=== PATIENT | male | born 1975 | race Caucasian/White ===

== ENCOUNTER 2016-08-16 19:42 | Emergency (ER) | payer MEDICAID, OTHER ==
[~2016-08-16] VITALS: Ht 167.6 cm; Wt 75.5 kg
[2016-08-16 19:45] VITALS: Ht 167.6 cm; Wt 75.5 kg
[2016-08-16] MEDS ORDERED: morphine 4 MG/ML VIAL IV STA (20:42)
--- NOTE | 2016-08-16 20:51 | ERD ---
ER Documentation Chief Complaint Date/Time DATE: 08/16/16 TIME: 20:50 Chief Complaint R SIDE HEADACHE FOR PAST 2 DAYS, PERRCHERY, [id number] NEURO, -N/V, -DIZZINESS HPI 41-year-old male with history of hypertension presents to the emergency department with complaints of a right-sided headache which began 2 days ago. Patient states he was sitting at home when the headache began and since that time it has gradually worsened. Patient states he has been treating his headache with Tylenol with only temporary relief. Patient denies any history of migraines. Patient states his pain is currently an 8 out of 10 throbbing right-sided pain worse when opening his jaw. Patient also notes one episode of blurry vision while driving today which resolved on its own. Patient states he was prescribed an antihypertensive medication by his primary care physician. He cannot recall the name of the medication but states that he is compliant and takes it every day ROS All systems reviewed and are negative except as per history of present illness. Medications Home Meds Active Scripts Ibuprofen* (Motrin*) 600 Mg Tab, 600 MG PO Q6H Y for PAIN for 7 Days, TAB Prov:MARINA HUYNH PA-C 08/16/16 Ondansetron (Ondansetron Odt) 4 Mg Tab.rapdis, 4 MG PO Q6H Y for NAUSEA AND/OR VOMITING, #10 TAB Prov:MARINA HUYNH PA-C 08/16/16 Hydrocodone/Acetaminophen ([place] 10-325 Tablet) 1 Each Tablet, 1 TAB PO Q6H Y for PAIN, #7 TAB Prov:MARINA HUYNH PA-C 08/16/16 Allergies Allergies: Coded Allergies: No Known Allergy (Unverified , 08/16/16) PMhx/Soc Hx Cardiac Disorders: Yes (htn) Hx Alcohol Use: No Hx Substance Use: No Hx Tobacco Use: No Smoking Status: Never smoker Physical Exam Vitals Vital Signs Date Time Temp Pulse Resp B/P Pulse Ox O2 Delivery O2 Flow Rate FiO2 08/16/16 22:57 74 16 128/78 08/16/16 19:45 97.8 80 18 162/80 98 Physical Exam Const: Well-developed, nontoxic-appearing, in mild distress Head: Atraumatic Eyes: Normal Conjunctiva ENT: Normal External Ears, Nose and Mouth. No tenderness to palpation of right temporal region. Patient notes tenderness when opening jaw. No popping or clicking of TM joint. Neck: Full range of motion..~ No meningismus. Resp: Clear to auscultation bilaterally Cardio: Regular rate and rhythm, no murmurs Abd: Soft, non tender, non distended. Normal bowel sounds Skin: No petechiae or rashes Back: No midline or flank tenderness Ext: No cyanosis, or edema Neur: Awake and alert Psych: Normal Mood and Affect Result Diagram: 08/16/16205508/16/162055 Results 24 hrs Laboratory Tests Test 08/16/16 20:56 08/16/16 21:05 Alanine Aminotransferase (ALT/SGPT) 48IU/L Albumin 4.0g/dl Albumin/Globulin Ratio 1.42 Alkaline Phosphatase 108IU/L Anion Gap 17 Aspartate Amino Transf (AST/SGOT) 31IU/L Basophils # 0.010^3/ul Basophils % 0.2% Blood Urea Nitrogen 21mg/dl Calcium Level 8.9mg/dl Carbon Dioxide Level 23mmol/L Chloride Level 106mmol/L Creatinine 0.75mg/dl Direct Bilirubin 0.00mg/dl Eosinophils # 0.210^3/ul Eosinophils % 2.3% Erythrocyte Sedimentation Rate 3mm/Hr Globulin 2.80g/dl Glucose Level 102mg/dl Hematocrit 42.2% Hemoglobin 14.7g/dl Indirect Bilirubin 0.1mg/dl Lymphocytes # 2.210^3/ul Lymphocytes % 29.4% Mean Corpuscular Hemoglobin 31.0pg Mean Corpuscular Hemoglobin Concent 34.8g/dl Mean Corpuscular Volume 89.0fl Mean Platelet Volume 8.6fl Monocytes # 0.610^3/ul Monocytes % 8.2% Neutrophils # 4.510^3/ul Neutrophils % 59.9% Nucleated Red Blood Cells # 0.010^3/ul Nucleated Red Blood Cells % 0.0/100WBC Platelet Count 90043^3/UL Potassium Level 3.4mmol/L Red Blood Count 4.7410^6/ul Red Cell Distribution Width 12.9% Sodium Level 143mmol/L Total Bilirubin 0.1mg/dl Total Protein 6.8g/dl White Blood Count 7.510^3/ul Urine Bilirubin NEGATIVE Urine Clarity CLEAR Urine Color LT. YELLOW Urine Glucose NEGATIVE% Urine Hemoglobin NEGATIVE Urine Ketones NEGATIVE Urine Leukocyte Esterase NEGATIVE Urine Nitrite NEGATIVE Urine Specific [place] 1.015 Urine Total Protein NEGATIVE Urine Urobilinogen 0.2 E.U./dL Urine pH 6.0 Current Medications Medications (Trade) Dose Ordered Sig/Jairo Route PRN Reason Start Time Stop Time Status Last Admin Dose Admin Morphine Sulfate (morphine) 4 mg ONCE STAT IV 08/16/16 20:42 08/16/16 20:55 DC Metoclopramide HCl (Reglan) 10 mg ONCE ONCE IV 08/16/16 21:00 08/16/16 21:01 DC Acetaminophen 650 mg 650 mg ONCE ONCE PO 08/16/16 21:00 08/16/16 21:01 DC 08/16/16 20:52 Sodium Chloride (NS) 1,000 ml @ 1,000 mls/hr Q1H ONCE IV 08/16/16 21:00 08/16/16 21:59 DC 08/16/16 20:52 Ketorolac Tromethamine 30 mg 30 mg ONCE STAT IV 08/16/16 22:28 08/16/16 22:29 DC 08/16/16 22:35 Sodium Chloride (NS) 500 ml @ 500 mls/hr Q1H ONCE IV 08/16/16 22:30 08/16/16 23:29 DC 08/16/16 22:35 Labetalol HCl (Labetalol) 20 mg ONCE ONCE IV 08/16/16 23:00 08/16/16 23:01 DC Procedures/MDM PROCEDURE: CT BRAIN WITHOUT CONTRAST CLINICAL INDICATION: 41-year-old with headaches. TECHNIQUE: The study was performed utilizing a GE [employer] VCT 64-slice CT scanner. Direct axial sections were obtained from the foramen magnum to the vertex without the use of intravenous contrast material. Sagittal and coronal reformations were obtained. Automated exposure control and iterative reconstruction techniques were utilized for this examination. The images were viewed on a PACS workstation. CTD/vol = 44.6 mGy; Total Exam DLP = 720.2 mGy- cm. COMPARISON: None. FINDINGS: The ventricles have a normal size, shape and position. There is no evidence for mass effect or midline shift. There is a left frontal cortical calcific density measuring approximately 8 x 5 x 7 mm on axial image 2-21 most likely from prior cysticercosis infection. There is no evidence for acute intra or extra-axial blood. The bony calvarium is intact. There is a defect within the left lamina papyracea consistent with a prior medial blowout fracture. There is minimal mucosal thickening within the partially visualized ethmoid air cells. No air-fluid levels are noted. The mastoid air cells are without significant soft tissue. IMPRESSION: 1. Left frontal calcific density presumably from prior cysticercosis infection. 2. Defect left lamina papyracea consistent with a prior medial blowout fracture. 3. Minimal mucosal thickening partially visualized ethmoid air cells. .Vicente Suazo MD, MD Date Time Electronically viewed and signed by .Vicente Suazo MD, on 08/16/2016 23:29 .M/ CC: MARINA HUYNH PA-C This is a 41-year-old male who presents with right-sided headache pain for the past 3 days. Vital signs were reviewed. Patient is afebrile. Patient is not hypoxic. Patient normotensive at 128/78 upon arrival. Patient received IV fluids, Tylenol, Toradol, and Reglan. Patient reports alleviation of symptoms posttreatment. (Exam) ENT exam was normal.. CBC showed no evidence of systemic infection or severe anemia. CMP showed no evidence of electrolyte abnormalities, severe acidosis, alkalosis , renal failure, or liver disease. ESR recorded at 3. At this time I have low suspicion for giant cell arteritis. UA showed no evidence of acute infection or hematuria. The patient's headache is unlikely related to serious etiology. The patient does not exhibit any clinical signs or symptoms, and has no risk factors to suggest headache etiology such as subarachnoid hemorrhage, acute vertebral or carotid dissection, intracranial mass, epidural, subdural hematoma, dural venous sinus thrombosis, giant cell arteritis, or pseudotumor cerebri. Based on patient's history of present illness and physical examination the decision was made to discharge. The patient was re-evaluated after ED treatment and stabilizing measures, and symptoms have improved. There is no evidence of life threatening injuries or illnesses at this time. On re-examination, patient resting in no distress, stable vital signs, reports feeling better and safe for discharge with outpatient follow up with PMD in 1-2 days. Patient given return precautions. Patient will placed on a short course of pain medication. Patient instructed to follow-up with his primary care physician to more closely monitor his blood pressure. Departure Diagnosis: Primary Impression: Headache Headache type: unspecified Headache chronicity pattern: acute headache Intractability: not intractable Qualified Code: R51 - Acute nonintractable headache, unspecified headache type MARINA HUYNH PA-C Aug 16, 2016 20:51
[2016-08-16] MEDS ORDERED: ACETAMINOPHEN 325 MG TAB PO ONE (21:00)
[2016-08-16] MEDS ORDERED: SOD CHLORIDE 0.9% 1,000 ML IV ONE (21:00)
[2016-08-16] MEDS ORDERED: METOCLOPRAMIDE 10 MG INJ IV ONE (21:00)
[2016-08-16 21:39] LABS: BASOPHILS % 0.2 % (0.0-2.0); CONDITION 1; EOSINOPHILS # 0.2 10^3/ul (0.0-0.5); EOSINOPHILS % 2.3 % (0.0-7.0); HEMATOCRIT 42.2 % (42.0-52.0); HEMOGLOBIN 14.7 g/dl (14.0-18.0); LYMPHOCYTES # 2.2 10^3/ul (0.8-2.9); LYMPHOCYTES % 29.4 % (15.0-51.0); MEAN CORPUSCULAR HGB CONC 34.8 g/dl (32.0-37.0); MEAN PLATELET VOLUME 8.6 fl (7.4-10.4); MONOCYTE # 0.6 10^3/ul (0.3-0.9); MONOCYTES % 8.2 % (0.0-11.0); NEUTROPHIL # 4.5 10^3/ul (1.6-7.5); NEUTROPHILS % 59.9 % (39.0-77.0); PLATELET COUNT 226 10^3/UL (140-440); RED BLOOD COUNT 4.74 10^6/ul (4.70-6.10); RED CELL DISTRIBUTION WIDTH 12.9 % (11.5-14.5); UNCORRECTED WBC 7.5 10^3/ul (4.8-10.8); WHITE BLOOD COUNT 7.5 10^3/ul (4.8-10.8)
[2016-08-16 21:45] LABS: ADD UMIC NO; URINE BILIRUBIN (Dip) NEGATIVE (NEGATIVE); URINE BLOOD (Dip) NEGATIVE (NEGATIVE); URINE COLOR LT. YELLOW (YELLOW); URINE GLUCOSE (Dip) NEGATIVE (NEGATIVE); URINE KETONES (Dip) NEGATIVE (NEGATIVE); URINE LEUKOCYTE ESTERASE (Dip) NEGATIVE (NEGATIVE); URINE NITRITE (Dip) NEGATIVE (NEGATIVE); URINE TOTAL PROTEIN (Dip) NEGATIVE (NEGATIVE); URINE UROBILINOGEN (Dip) 0.2 E.U./dL (0.1-1.0)
[2016-08-16 21:50] LABS: POTASSIUM 3.4 mmol/L (3.5-5.1)
[2016-08-16 21:52] LABS: BILIRUBIN,INDIRECT 0.1 mg/dl (0-1.1); BILIRUBIN,TOTAL 0.1 mg/dl (0.2-1.3); CREATININE 0.75 mg/dl (0.61-1.24)
[2016-08-16 21:53] LABS: ALBUMIN/GLOBULIN RATIO 1.42; TOTAL PROTEIN 6.8 g/dl (6.1-8.1)
[2016-08-16 21:54] LABS: CALCIUM 8.9 mg/dl (8.4-10.2)
[2016-08-16] MEDS ORDERED: KETOROLAC 30 MG INJ IV STA (22:28)
[2016-08-16] MEDS ORDERED: SOD CHLORIDE 0.9% 500 ML IV ONE (22:30)
[2016-08-16 22:57] VITALS: BP 128/78; PULSE 74; RESP 16
[2016-08-16] MEDS ORDERED: LABETALOL HCL 20MG INJ IV ONE (23:00)
--- NOTE | 2016-08-16 23:30 | RADRPT ---
PROCEDURE: CT BRAIN WITHOUT CONTRAST CLINICAL INDICATION: 41-year-old with headaches. TECHNIQUE: The study was performed utilizing a [employer] VCT 64-slice CT scanner. Direct axia l sections were obtained from the foramen magnum to the vertex without the use of intravenous contra st material. Sagittal and coronal reformations were obtained. Automated exposure control and iterat liliane reconstruction techniques were utilized for this examination. The images were viewed on a PACS workstation. CTD/vol = 44.6 mGy; Total Exam DLP = 720.2 mGy-cm. COMPARISON: None. FINDINGS: The ventricles have a normal size, shape and position. There is no evidence for mass effect or midl ine shift. There is a left frontal cortical calcific density measuring approximately 8 x 5 x 7 mm o n axial image 2-21 most likely from prior cysticercosis infection. There is no evidence for acute i ntra or extra-axial blood. The bony calvarium is intact. There is a defect within the left lamina pa pyracea consistent with a prior medial blowout fracture. There is minimal mucosal thickening within the partially visualized ethmoid air cells. No air-fluid levels are noted. The mastoid air cells ar e without significant soft tissue. IMPRESSION: 1. Left frontal calcific density presumably from prior cysticercosis infection. 2. Defect left lamina papyracea consistent with a prior medial blowout fracture. 3. Minimal mucosal thickening partially visualized ethmoid air cells. .Vicente Suazo MD, Date Time Electronically viewed and signed by .Vicente Suazo MD, MD on 08/16/2016 23:29 .M/
[2016-08-16] MEDS ORDERED: HYDR-902 PO (23:34)
[2016-08-16] MEDS ORDERED: ONDA4TAB14 PO (23:34)
[2016-08-16] MEDS ORDERED: IBUP-1542 PO (23:34)
== END 2016-08-16 23:52 | disposition home or self-care (01) ==
LOC: FTE 19:42
DX: R51 Headache (principal); I10 Essential (primary) hypertension
CPT/HCPCS: 36415; 70450; 80053; 81003; 85025; 85651; 96361; 96374; J1885; J7030; J7040; Z7502; Z7610; J2270; J2765